=== PATIENT | male | born 1960 | race Caucasian/White ===

== ENCOUNTER 2019-03-24 23:40 | Emergency (ER) | payer MEDICAID ==
[~2019-03-24] VITALS: Ht 177.8 cm; Wt 104.8 kg
[2019-03-25 02:19] VITALS: BP 126/78
[2019-03-25] MEDS ORDERED: BACLOFEN 10 MG TAB PO ONE (03:00)
[2019-03-25] MEDS ORDERED: HYDROcodone-ACET 10/325MG TAB PO ONE (03:00)
== END 2019-03-25 03:50 | disposition home or self-care (01) ==
LOC: ER 23:40
DX: S72.421A Displaced fracture of lateral condyle of right femur, initial encounter for closed fracture (principal); M25.061 Hemarthrosis, right knee; E11.9 Type 2 diabetes mellitus without complications; Z89.511 Acquired absence of right leg below knee; Z88.5 Allergy status to narcotic agent; Z88.6 Allergy status to analgesic agent; W18.39XA Other fall on same level, initial encounter; Y93.89 Activity, other specified; Y92.89 Other specified places as the place of occurrence of the external cause; Y99.8 Other external cause status
CPT/HCPCS: 29505; 73562